=== PATIENT | female | born 1950 | race Caucasian/White ===

== ENCOUNTER 2022-12-17 08:05 | Observation (INO) | payer MEDICARE, BC ==
[~2022-12-17] VITALS: Ht 160 cm; Wt 59.9 kg
[2022-12-17] MEDS ORDERED: MECLIZINE HCL 12.5 MG TAB PO STA (08:32)
[2022-12-17 08:51] LABS: BASOPHILS % 0.4 % (0.0-1.0); EOSINOPHILS # (AUTO) 0.1 (0.0-0.4); EOSINOPHILS % 2.4 % (0.0-6.0); HEMOGLOBIN 12.2 g/dL (12.0-16.0); LYMPHOCYTES % 39.8 % (18.0-39.1); MEAN CORPUSCULAR HEMOGLOBIN 28.5 pg (28-32); MEAN CORPUSCULAR HGB CONC 32.1 g/dL (31-35); MEAN CORPUSCULAR VOLUME 88.8 fL (81-99); MONOCYTES # (AUTO) 0.4 (0.2-0.8); MONOCYTES % 7.8 % (4.4-11.3); NEUTROPHILS # (AUTO) 2.5 (2.1-6.9); PLATELET COUNT 241 x10e3/uL (140-360); RED BLOOD COUNT 4.28 x10e6/uL (3.6-5.1); RED CELL DISTRIBUTION WIDTH 13.3 % (11.7-14.4)
[2022-12-17] MEDS ORDERED: HYDROCHLOROTHIA25 MG PO (08:56)
[2022-12-17] MEDS ORDERED: ALENDRONATE SOD70 MG PO (08:56)
[2022-12-17] MEDS ORDERED: ULTRAM 50MG50 MG PO (08:56)
[2022-12-17] MEDS ORDERED: AMLODIPINE BESYL5 MG PO (08:56)
[2022-12-17] MEDS ORDERED: LOSARTAN POTAS100 MG PO (08:56)
[2022-12-17] MEDS ORDERED: OMEPRAZOLE40 MG PO (08:56)
[2022-12-17] MEDS ORDERED: LOVAZA1 GM PO (08:56)
[2022-12-17] MEDS ORDERED: SERTRALINE HCL100 MG PO (08:56)
[2022-12-17] MEDS ORDERED: OXYBUTYNIN CHLOR5 MG PO (08:56)
[2022-12-17 09:10] LABS: ALANINE AMINOTRANSFERASE 23 IU/L (0-55); ALBUMIN 3.5 g/dL (3.5-5.0); ALKALINE PHOSPHATASE 35 IU/L (40-150); ANION GAP 14.3 mmol/L (8-16); BLOOD UREA NITROGEN 14 mg/dL (7-26); BUN/CREATININE RATIO 20 (6-25); CALCIUM 9.1 mg/dL (8.4-10.2); CARBON DIOXIDE 27 mmol/L (22-29); CHLORIDE 103 mmol/L (98-107); CREATINE KINASE 55 IU/L (29-168); CREATININE, SERUM 0.69 mg/dL (0.57-1.11); GLUCOSE 129 mg/dL (74-118); POTASSIUM 3.3 mmol/L (3.5-5.1); SODIUM 141 mmol/L (136-145)
[2022-12-17] MEDS ORDERED: SODIUM CHLORIDE 0.9% 100 ML ONE (09:21)
[2022-12-17] MEDS ORDERED: IOPAMIDOL 370 MG/ML 100 ML INFUS..BTL INJ ONE (09:21)
[2022-12-17] MEDS ORDERED: POTASSIUM CHLORIDE 20 MEQ TAB CR PO STA (09:21)
[2022-12-17 17:29] LABS: CREATINE KINASE 43 IU/L (29-168)
[2022-12-17] MEDS ORDERED: TRAMADOL HCL 50 MG TAB PO PRN (18:15)
[2022-12-17 21:00] VITALS: BP 138/73
[2022-12-17 22:06] VITALS: BP 132/68
[2022-12-18 00:26] LABS: CREATINE KINASE 33 IU/L (29-168)
[2022-12-18 01:25] VITALS: BP 106/51
[2022-12-18 05:20] VITALS: BP 133/76
[2022-12-18 07:15] LABS: CREATINE KINASE 33 IU/L (29-168)
[2022-12-18 07:48] LABS: CHOL/HDL RATIO 5.7 (3.0-3.6)
[2022-12-18 08:38] VITALS: BP 121/66
[2022-12-18 09:00] VITALS: BP 121/66
[2022-12-18] MEDS ORDERED: SERTRALINE HCL 100 MG TAB PO SCH (09:00)
[2022-12-18] MEDS ORDERED: PANTOPRAZOLE SOD 40 MG TABEC PO SCH (09:00)
[2022-12-18] MEDS ORDERED: ASPIRIN 325 MG TAB EC PO SCH (09:00)
[2022-12-18] MEDS ORDERED: LOSARTAN POTASSIUM 100 MG TAB PO SCH (09:00)
[2022-12-18] MEDS ORDERED: AMLODIPINE BESYLATE 5 MG TAB PO SCH (09:00)
[2022-12-18] MEDS: MECLIZINE HCL 12.5 MG TAB PO SCH ×2 (10:20→17:10)
[2022-12-18] MEDS ORDERED: GADOBENATE DIMEGLUMINE 1 ML IV ONE (11:50)
[2022-12-18 12:23] VITALS: BP 116/56
[2022-12-18] MEDS ORDERED: MECLIZINE HCL12.5 MG PO (18:51)
== END 2022-12-18 19:20 | disposition home or self-care (01) ==
LOC: ER 08:11 → ERHOLD 13:50 → MED/SURG2 17:23
PROVIDERS: ADMIT Family Medicine; ATTEND Family Medicine
DX: H81.399 Other peripheral vertigo, unspecified ear (principal); E11.9 Type 2 diabetes mellitus without complications; E87.6 Hypokalemia; I10 Essential (primary) hypertension; E78.5 Hyperlipidemia, unspecified; I69.993 Ataxia following unspecified cerebrovascular disease; M81.0 Age-related osteoporosis without current pathological fracture; Z88.0 Allergy status to penicillin; Z20.822 Contact with and (suspected) exposure to COVID-19; Z79.899 Other long term (current) drug therapy; R63.4 Abnormal weight loss; Z90.49 Acquired absence of other specified parts of digestive tract
CPT/HCPCS: 36415 ×2; 70496; 70498; 70553; 71045; 80053; 80061; 82550 ×2; 82553 ×2; 82948 ×2; 84484 ×2; 85025; 93005; 95819; 97116; 97161; 99284; G0378 ×2; J7050; J8597 ×2; Q9967; S0164; U0002; 80048